=== PATIENT | female | born 1950 | race Two or more races ===

== ENCOUNTER 2022-06-11 22:09 | Emergency (ER) | payer OTHER ==
[~2022-06-11] VITALS: Ht 167.6 cm; Wt 88.5 kg
[~2022-06-11 22:09] MED LIST: GLUCOVANCE 1.251 TAB PO; HYZAAR 100-121 UDTAB PO; NEURONTIN300 MG PO
[2022-06-11] MEDS ORDERED: AZITHROMYCIN250 MG (22:48)
[2022-06-11] MEDS ORDERED: ALBUTEROL SULFATE (22:49)
[2022-06-11] MEDS ORDERED: [UNRECOGNIZED DRUG - OTHER] (22:51)
[2022-06-11] MEDS ORDERED: ZANAFLEX4 MG (22:52)
== END 2022-06-12 05:07 | disposition home or self-care (01) ==
LOC: ER 22:09
DX: E11.65 Type 2 diabetes mellitus with hyperglycemia (principal); Z79.84 Long term (current) use of oral hypoglycemic drugs

== ENCOUNTER 2024-02-09 07:31 | Emergency (ER) | payer OTHER ==
[~2024-02-09] VITALS: Ht 167.6 cm; Wt 86.6 kg
[~2024-02-09 07:31] MED LIST changes: +ALBUTEROL SULFATE; +AZITHROMYCIN250 MG; +ZANAFLEX4 MG; +[UNRECOGNIZED DRUG - OTHER]
[2024-02-09] MEDS ORDERED: DAFLONEX-XL 11300 MG PO (07:53)
[2024-02-09] MEDS ORDERED: METFORMIN HCL1000 M2 PO (07:54)
[2024-02-09] MEDS ORDERED: 0.9 % SODIUM CHLORIDE 1,000 ML IV STA (09:04)
[2024-02-09] MEDS ORDERED: MEPERIDINE HCL/PF 50 MG/ML VIAL IV ONE (09:15)
[2024-02-09 09:48] LABS: HEMATOCRIT 35.7 % (36.0-45.00); HEMOGLOBIN 12.2 g/dL (12.0-15.00); MEAN CELL VOLUME 87.3 fL (80.00-100.00); MEAN CORPUSCULAR HEMOGLOBIN 29.9 pg (27.00-32.0); MEAN CORPUSCULAR HGB CONC 34.2 g/dl (32.0-36.0); PLATELET COUNT 250 K/uL (150-450); RED BLOOD COUNT 4.09 M/uL (4.00-6.00); RED CELL DISTRIBUTION WIDTH 13.1 % (11.5-14.5)
[2024-02-09 10:11] LABS: INR 1.04; PARTIAL THROMBOPLASTIN TIME 25.5 SECONDS (22.0-34.0); PROTHROMBIN TIME 10.9 SECONDS (9.0-11.5)
[2024-02-09 10:15] LABS: ALBUMIN 3.7 gm/dL (3.4-5.0); BILIRUBIN TOTAL 0.83 mg/dL (0.3-1.2); CREATININE SERUM 0.86 mg/dL (0.55-1.02); GFR 64.86; GLOBULINA 3.8 G/DL (2.4-3.5); POTASSIUM 3.92 mEq/L (3.5-5.1); TOTAL PROTEIN 7.5 gm/dL (6.4-8.2)
[2024-02-09 11:46] LABS: PH,URINE 7.5 (5.0-8.0); URINE APPEARANCE Clear; URINE BILIRRUBIN Negative (NEGATIVE); URINE BLOOD Negative; URINE COLOR Yellow; URINE GLUCOSE Negative (NEGATIVE); URINE LEUKOCYTE Trace; URINE NITRATE Negative; URINE PROTEIN Negative (NEGATIVE); URINE UROBILINOGEN 0.2 E.U./dl
[2024-02-09 11:53] LABS: URINE BACTERIA 61.6 uL (0.0-1933); URINE RBC 5.3 uL (0.0-20.8); URINE WBC 7.5 uL (0.0-23.2)
== END 2024-02-09 14:53 | disposition home or self-care (01) ==
LOC: ER 07:32
PROVIDERS: Emergency Medicine
DX: K57.32 Diverticulitis of large intestine without perforation or abscess without bleeding (principal); R10.9 Unspecified abdominal pain
CPT/HCPCS: 36415; 74177; 96365; 96366; 99284; J7030; Q9965